=== PATIENT | male | born 1945 | race Caucasian/White ===

== ENCOUNTER 2018-06-10 07:33 | Day surgery (SDC) | payer OTHER, MEDICARE ==
[2018-06-05 07:34] VITALS: BMI 39.5
[2018-06-10] MEDS ORDERED: PROPOFOL 20 ML ONE ×2 (08:17)
[2018-06-10 10:28] VITALS: BP 103/71; TEMP 97.9
[2018-06-10 10:31] VITALS: PULSE 68
== END 2018-06-10 10:15 | disposition home or self-care (01) ==
LOC: FASU-ENDO 07:33
PROVIDERS: ATTEND Internal Medicine Gastroenterology
PROC: 0DJD8ZZ Inspection of Lower Intestinal Tract, Via Natural or Artificial Opening Endoscopic (ICD-10-PCS; principal; 2018-06-10 09:08)
DX: Z86.010 Personal history of colon polyps (principal)